=== PATIENT | male | born 1970 | race Two or more races ===

== ENCOUNTER 2020-09-06 10:50 | Outpatient (CLI) | payer MEDICARE, MEDICAID | END 2020-09-06 23:59 | disposition home or self-care (01) | LOC: WOU 10:50 | PROVIDERS: ATTEND Podiatrist Foot & Ankle Surgery | DX: E11.621 Type 2 diabetes mellitus with foot ulcer (principal); L97.415 Non-pressure chronic ulcer of right heel and midfoot with muscle involvement without evidence of necrosis; I87.311 Chronic venous hypertension (idiopathic) with ulcer of right lower extremity; L97.315 Non-pressure chronic ulcer of right ankle with muscle involvement without evidence of necrosis; E11.42 Type 2 diabetes mellitus with diabetic polyneuropathy; Z79.4 Long term (current) use of insulin; I89.0 Lymphedema, not elsewhere classified; B35.1 Tinea unguium | CPT/HCPCS: 11043; 11046; 87070; 87077 ×2; 87186; A6197; A6253 ×3 ==